=== PATIENT | male | born 1960 | race Caucasian/White ===

== ENCOUNTER 2020-04-06 11:52 | Inpatient (IN) | payer BC ==
[~2020-04-06] VITALS: Ht 170.2 cm; Wt 71.4 kg
[2020-04-06] MEDS ORDERED: HALOPERIDOL 5MG/ML VIAL (J1630 PER 1) IM ONE (12:15)
[2020-04-06] MEDS ORDERED: LORazepam 2 MG/ML VIAL IM ONE (12:15)
[2020-04-06] MEDS ORDERED: diphenhydrAMINE 50MG/ML VIAL (J1200) IM ONE (12:15)
[2020-04-06 12:26] LABS: HEMATOCRIT 38.7 % (42.0-52.0); HEMOGLOBIN 13.3 g/dl (13.5-17.5); MEAN CORPUSCULAR HEMOGLOBIN 32.4 pg (27.0-33.0); MEAN CORPUSCULAR HGB CONC 34.4 g/dl (32.0-36.5); MEAN CORPUSCULAR VOLUME 94.2 fl (80.0-96.0); PLATELET COUNT, AUTOMATED 182 10^3/uL (150-450); RED BLOOD COUNT 4.11 10^6/uL (4.30-6.10); WHITE BLOOD COUNT 7.5 10^3/uL (4.0-10.0)
[2020-04-06 13:02] LABS: ACETAMINOPHEN LEVEL < 2.0 UG/ML (10.0-30.0); ALBUMIN 3.7 GM/DL (3.2-5.2); ALT/SGPT 35 U/L (12-78); BILIRUBIN,DIRECT 0.2 MG/DL (0.0-0.2); BILIRUBIN,TOTAL 0.8 MG/DL (0.2-1.0); BLOOD UREA NITROGEN 17 MG/DL (7-18); CALCIUM LEVEL 8.5 MG/DL (8.8-10.2); CARBON DIOXIDE LEVEL 26 MEQ/L (21-32); CHLORIDE LEVEL 101 MEQ/L (98-107); CPK CREATINE PHOSPHOKINASE 419 U/L (39-308); CREATININE FOR GFR 1.04 MG/DL (0.70-1.30); ETHYL ALCOHOL (ETHANOL) < 0.003 % (0.000-0.010); GLOMERULAR FILTRATION RATE > 60.0 (>49); GLUCOSE, FASTING 94 MG/DL (70-100); POTASSIUM SERUM 3.8 MEQ/L (3.5-5.1); SALICYLATE LEVEL 2.4 MG/DL (5.0-30.0); SODIUM LEVEL 135 MEQ/L (136-145); TOTAL PROTEIN 6.7 GM/DL (6.4-8.2)
[2020-04-06 14:15] LABS: AMPHETAMINES LEVEL URINE NEGATIVE (NEGATIVE); BARBITURATES URINE NEGATIVE (NEGATIVE); BENZODIAZEPINES URINE NEGATIVE (NEGATIVE); CANNABINOIDS URINE NEGATIVE (NEGATIVE); COCAINE METABOLITE URINE NEGATIVE (NEGATIVE); METHADONE URINE NEGATIVE (NEGATIVE); OPIATES URINE NEGATIVE (NEGATIVE); PHENCYCLIDINE URINE NEGATIVE (NEGATIVE)
[2020-04-06] MEDS ORDERED: MOM 30ML SUSPENSION UDC PO PRN (15:00)
[2020-04-06] MEDS ORDERED: RISP4TAB2 PO (15:15)
[2020-04-06] MEDS ORDERED: ASPI81TA26 PO (15:15)
[2020-04-06] MEDS ORDERED: AMLO10TA5 PO (15:15)
[2020-04-06] MEDS ORDERED: LOPE1CAP5 PO (15:15)
[2020-04-06] MEDS ORDERED: DIVA500T9 PO (15:15)
[2020-04-06] MEDS ORDERED: RISP2TAB3 PO (15:15)
[2020-04-06] MEDS ORDERED: DIVA250T7 PO (15:15)
[2020-04-06] MEDS ORDERED: ATOR1TAB21 PO (15:33)
[2020-04-06] MEDS ORDERED: TRAZ1TAB14 PO (15:33)
[2020-04-06] MEDS ORDERED: LISI-538 PO (15:33)
[2020-04-06 17:47] VITALS: BP 145/85
[2020-04-06] MEDS: IBUPROFEN 400 MG TAB PO PRN (19:41)
[2020-04-06] MEDS: ACETAMINOPHEN TAB 650MG DOSE (2X325MG) PO PRN (20:35)
[2020-04-06] MEDS: OLANZapine ORAL DISINTEGRATING TAB 5MG PO PRN (20:35)
[2020-04-07 07:13] VITALS: BP 121/66
[2020-04-07] MEDS: ACETAMINOPHEN TAB 650MG DOSE (2X325MG) PO PRN ×2 (10:03→15:30)
[2020-04-07] MEDS: amLODIPine 10 MG TAB PO SCH (11:19)
[2020-04-07] MEDS: lisinopriL 20 MG TAB PO SCH (11:19)
[2020-04-07] MEDS: ATORVASTATIN 20 MG TAB PO SCH (11:19)
[2020-04-07] MEDS: ASPIRIN 81 MG ENTERIC TAB PO SCH (11:20)
[2020-04-07] MEDS: DIVALPROEX 250MG *ER* TAB PO SCH (12:43)
--- NOTE | 2020-04-07 14:00 | HPEPDOC ---
[facility] Medical History & Physical Date of Admission Apr 06, 2020 Date of Service: Apr 07, 2020 History and Physical CHIEF COMPLAINT: Admitted to [facility] HISTORY OF PRESENT ILLNESS: 59 yo male brought to hospital by police for manic behavior. Patient voices no medical complaints at this time. Denies chest pain, shortness of breath, headaches, changes in vision, abdominal pain, N/V/D. PAST MEDICAL HISTORY: HTN DLP ALLERGIES: Please see below. REVIEW OF SYSTEMS: Negative except as per HPI HOME MEDICATIONS: Please see below. PHYSICAL EXAMINATION: VITAL SIGNS: See below General: NAD, sitting comfortably in chair HEENT: NC/AT, EOMI, PERRL Lungs: CTA B/L Heart: +S1S2, RRR Abd: soft, NT, +BS Ext: no edema LABORATORY DATA: See below. MICROBIOLOGY: Please see below. ASSESSMENT: 59 yo male admitted to [facility] for manic episode #psych - as per primary team #HTN - continue home meds - norvasc, lisinopril #DLP - continue home meds - statin therapy Dispo: Thank you for this consult. Please re-consult as needed. Vital Signs Vital Signs Date Time Temp Pulse Resp B/P (MAP) Pulse Ox O2 Delivery O2 Flow Rate FiO2 04/07/20 11:19 86 128/79 04/07/20 10:41 Room Air 04/07/20 07:13 98.0 16 96 Home Medications Scheduled Amlodipine Besylate (Amlodipine Besylate) 10 Mg Tablet, 10 MG PO DAILY Aspirin (Aspirin EC) 81 Mg Tablet.dr, 81 MG PO DAILY Atorvastatin Calcium (Atorvastatin Calcium) 20 Mg Tablet, 20 MG PO DAILY Divalproex Sodium (Divalproex Sodium ER) 500 Mg Tab.er.24h, 1,500 MG PO BID Divalproex Sodium (Divalproex Sodium ER) 250 Mg Tab.er.24h, 250 MG PO DAILY Lisinopril (Lisinopril) 20 Mg Tablet, 20 MG PO DAILY Loperamide HCl (Loperamide) 2 Mg Capsule, 2 MG PO DAILY Risperidone (Risperidone) 2 Mg Tablet, 2 MG PO DAILY Risperidone (Risperidone) 4 Mg Tablet, 4 MG PO DAILY Trazodone HCl (Trazodone HCl) 150 Mg Tablet, 300 MG PO QHS Allergies Coded Allergies: Penicillins (Verified Allergy, Unknown, 7/9/20) A-FIB/CHADSVASC A-FIB History Current/History of A-Fib/PAF?: No JOSE GUO MD Apr 07, 2020 13:59
[2020-04-07] MEDS: OLANZapine ORAL DISINTEGRATING TAB 5MG PO PRN (15:31)
[2020-04-07 16:35] VITALS: BP 119/68
[2020-04-07] MEDS ORDERED: DIVALPROEX 500MG *ER* TAB PO SCH (21:00)
[2020-04-07] MEDS ORDERED: DIVALPROEX 250 MG TAB PO SCH (21:00)
[2020-04-07] MEDS: DIVALPROEX 500 MG TAB PO SCH (21:42)
[2020-04-07] MEDS: traZODone 50 MG TAB PO PRN (21:42)
[2020-04-08 06:09] VITALS: BP 121/70
[2020-04-08] MEDS: amLODIPine 10 MG TAB PO SCH (08:59)
[2020-04-08] MEDS: lisinopriL 20 MG TAB PO SCH (08:59)
[2020-04-08] MEDS: ATORVASTATIN 20 MG TAB PO SCH (08:59)
[2020-04-08] MEDS: ASPIRIN 81 MG ENTERIC TAB PO SCH (08:59)
[2020-04-08] MEDS: DIVALPROEX 250MG *ER* TAB PO SCH (08:59)
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
[2020-04-08] MEDS: ACETAMINOPHEN TAB 650MG DOSE (2X325MG) PO PRN ×2 (12:10→18:55)
[2020-04-08] MEDS: OLANZapine ORAL DISINTEGRATING TAB 5MG PO PRN (16:14)
[2020-04-08 16:24] VITALS: BP 127/69
[2020-04-08] MEDS: IBUPROFEN 400 MG TAB PO PRN (19:49)
[2020-04-08] MEDS: OLANZapine 5 MG TAB PO SCH (23:15)
[2020-04-08] MEDS: DIVALPROEX 500 MG TAB PO SCH (23:15)
[2020-04-08] MEDS: traZODone 50 MG TAB PO PRN (23:15)
[2020-04-09] MEDS: OLANZapine ORAL DISINTEGRATING TAB 5MG PO PRN (01:54)
[2020-04-09] MEDS ORDERED: DIVALPROEX 500MG *ER* TAB PO SCH ×2 (09:00→21:00)
[2020-04-09] MEDS ORDERED: DIVALPROEX 250MG *ER* TAB PO SCH (09:00)
[2020-04-09] MEDS: ATORVASTATIN 20 MG TAB PO SCH (09:35)
[2020-04-09] MEDS: amLODIPine 10 MG TAB PO SCH (09:35)
[2020-04-09] MEDS: lisinopriL 20 MG TAB PO SCH (09:35)
[2020-04-09] MEDS: ASPIRIN 81 MG ENTERIC TAB PO SCH (09:35)
--- NOTE | 2020-04-09 12:40 | MHIPNPDOC ---
[facility] Progress Note Progress Note DATE OF SERVICE: 04/09/20 HPI: Abdias presents today for a follow up. He is doing well on Depakote, but notes GI upset. Objective Behavior: Engaged. Pleasant. Cooperative with good eye contact. Speech: Normal rate. Normal volume. Less pressured. Cognition: Alert, Attentive, and Oriented to person, place, time. Thought Form: Linear and goal directed. Judgement: intact as evidenced by decision making in the recent past. Insight: good insight into symptoms and treatment options. Assessment F31.2 Bipolar disorder, current episode manic severe with psychotic features Plan Move Depakote to nighttime at 1000 mg. Continue Zyprexa 5 mg at night and Protonix 20 mg daily for GI upset related to Depakote. Will continue to monitor and likely discharge later this week if condition is improving. Vital Signs Vital Signs Date Time Temp Pulse Resp B/P (MAP) Pulse Ox O2 Delivery O2 Flow Rate FiO2 04/09/20 09:35 122/64 04/09/20 09:35 90 04/08/20 16:24 98.2 20 04/07/20 10:41 Room Air 04/07/20 07:13 96 Current Medications Current Medications Medications (Trade) Dose Ordered Sig/Suha Route PRN Reason Start Time Stop Time Status Last Admin Dose Admin Acetaminophen (Tylenol Tab) 650 mg Q6HP PRN PO HEADACHE or DISCOMFORT 04/06/20 15:00 04/08/20 18:55 Amlodipine Besylate (Norvasc) 10 mg DAILY PO 04/07/20 09:00 04/09/20 09:35 Aspirin (Ecotrin) 81 mg DAILY PO 04/07/20 09:00 04/09/20 09:35 Atorvastatin Calcium (Lipitor) 20 mg DAILY PO 04/07/20 09:00 04/09/20 09:35 Divalproex Sodium (Depakote Er) 250 mg DAILY PO 04/07/20 09:00 04/08/20 11:57 DC 04/08/20 08:59 Divalproex Sodium (Depakote Er) 500 mg DAILY PO 04/09/20 09:00 04/08/20 11:59 DC Divalproex Sodium (Depakote Er) 500 mg DAILY PO 04/09/20 09:00 04/09/20 09:35 Divalproex Sodium (Depakote Er) 1,500 mg BID PO 04/07/20 21:00 UNV Divalproex Sodium (Depakote) 500 mg QHS PO 04/07/20 21:00 04/08/20 23:15 Divalproex Sodium (Depakote) 750 mg QHS PO 04/07/20 21:00 UNV Home Med (Med Rec Complete!) ASDIRECTED XX 04/06/20 16:45 04/06/20 16:32 DC Ibuprofen (Advil) 400 mg Q6HP PRN PO PAIN 04/06/20 15:00 04/08/20 19:49 Lisinopril (Prinivil) 20 mg DAILY PO 04/07/20 09:00 04/09/20 09:35 Magnesium Hydroxide (Milk Of Magnesia) 30 ml DAILYPRN PRN PO CONSTIPATION 04/06/20 15:00 Olanzapine (ZyPREXA ZYDIS) 5 mg Q4HP PRN PO AGITATION 04/06/20 15:00 04/09/20 01:54 Olanzapine (ZyPREXA) 5 mg QHS PO 04/08/20 21:00 04/08/20 23:15 Trazodone HCl (Desyrel) 50 mg QHSP PRN PO INSOMNIA 04/06/20 20:45 04/08/20 23:15 Allergies Coded Allergies: Penicillins (Verified Allergy, Unknown, 04/06/20) MILEY WILSON DO Apr 09, 2020 12:40
[2020-04-09] MEDS: ACETAMINOPHEN TAB 650MG DOSE (2X325MG) PO PRN (14:09)
[2020-04-09] MEDS ORDERED: PANTOPRAZOLE 20 MG TAB PO ONE (16:00)
[2020-04-09 16:29] VITALS: BP 123/77
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
[2020-04-09] MEDS: OLANZapine 5 MG TAB PO SCH (21:35)
[2020-04-09] MEDS: traZODone 50 MG TAB PO PRN (21:35)
[2020-04-09] MEDS: DIVALPROEX 500MG *ER* TAB PO SCH (21:55)
[2020-04-09] MEDS: traZODone 100 MG TAB PO SCH (21:55)
[2020-04-10 06:38] VITALS: BP 140/79
[2020-04-10] MEDS ORDERED: DIVALPROEX 500MG *ER* TAB PO SCH (09:00)
--- NOTE | 2020-04-10 09:12 | MHIPNPDOC ---
[facility] Progress Note Progress Note DATE OF SERVICE: 04/10/20 HPI: Abdias presents today for concerns regarding his follow up. He has attempted to be met with today, but he is distorted and aggressive to be met with effectively. He had been arguing with a safety staff about a mask and that covid-19 was not real and that he has been unusual throughout the day. Abdias was met with briefly but was too agitated to form any coherent sentences. Objective Behavior: Aggressive, irritable, anxious. Thought Form: Though process abound and hyper-verbal. Judgement: Poor. Insight: Poor. Assessment F31.13 Bipolar disorder, current episode manic without psychotic features, severe Plan Continue Depakote 1000 mg nightly, Trazadone 300 mg nightly, and Protonix. Patient has been instructed to stay in his room if he will not wear a mask, and hopefully his resolution will be more smooth. Vital Signs Vital Signs Date Time Temp Pulse Resp B/P (MAP) Pulse Ox O2 Delivery O2 Flow Rate FiO2 04/10/20 06:38 98.3 89 14 140/79 (99) Room Air 04/07/20 07:13 96 Current Medications Current Medications Medications (Trade) Dose Ordered Sig/Suha Route PRN Reason Start Time Stop Time Status Last Admin Dose Admin Acetaminophen (Tylenol Tab) 650 mg Q6HP PRN PO HEADACHE or DISCOMFORT 04/06/20 15:00 04/09/20 14:09 Amlodipine Besylate (Norvasc) 10 mg DAILY PO 04/07/20 09:00 04/09/20 09:35 Aspirin (Ecotrin) 81 mg DAILY PO 04/07/20 09:00 04/09/20 09:35 Atorvastatin Calcium (Lipitor) 20 mg DAILY PO 04/07/20 09:00 04/09/20 09:35 Divalproex Sodium (Depakote Er) 250 mg DAILY PO 04/07/20 09:00 04/08/20 11:57 DC 04/08/20 08:59 Divalproex Sodium (Depakote Er) 500 mg DAILY PO 04/09/20 09:00 04/08/20 11:59 DC Divalproex Sodium (Depakote Er) 500 mg DAILY PO 04/09/20 09:00 04/09/20 15:06 DC 04/09/20 09:35 Divalproex Sodium (Depakote Er) 1,000 mg DAILY PO 04/10/20 09:00 04/09/20 21:40 DC Divalproex Sodium (Depakote Er) 1,000 mg QHS PO 04/09/20 21:00 04/09/20 22:02 DC Divalproex Sodium (Depakote Er) 1,000 mg QHS PO 04/09/20 21:00 04/09/20 21:55 Divalproex Sodium (Depakote Er) 1,500 mg BID PO 04/07/20 21:00 UNV Divalproex Sodium (Depakote) 500 mg QHS PO 04/07/20 21:00 04/09/20 15:06 DC 04/08/20 23:15 Divalproex Sodium (Depakote) 750 mg QHS PO 04/07/20 21:00 UNV Home Med (Med Rec Complete!) ASDIRECTED XX 04/06/20 16:45 04/06/20 16:32 DC Ibuprofen (Advil) 400 mg Q6HP PRN PO PAIN 04/06/20 15:00 04/08/20 19:49 Lisinopril (Prinivil) 20 mg DAILY PO 04/07/20 09:00 04/09/20 09:35 Magnesium Hydroxide (Milk Of Magnesia) 30 ml DAILYPRN PRN PO CONSTIPATION 04/06/20 15:00 Olanzapine (ZyPREXA ZYDIS) 5 mg Q4HP PRN PO AGITATION 04/06/20 15:00 04/09/20 01:54 Olanzapine (ZyPREXA) 5 mg QHS PO 04/08/20 21:00 04/09/20 21:35 Pantoprazole Sodium (Protonix) 20 mg DAILY PO 04/10/20 09:00 Trazodone HCl (Desyrel) 50 mg QHSP PRN PO INSOMNIA 04/06/20 20:45 04/09/20 21:40 DC 04/08/20 23:15 Trazodone HCl (Desyrel) 300 mg QHS PO 04/09/20 21:00 04/09/20 21:55 Allergies Coded Allergies: Penicillins (Verified Allergy, Unknown, 04/06/20) MILEY WILSON DO Apr 10, 2020 09:12
[2020-04-10] MEDS: ASPIRIN 81 MG ENTERIC TAB PO SCH (09:31)
[2020-04-10] MEDS: lisinopriL 20 MG TAB PO SCH (09:31)
[2020-04-10] MEDS: ATORVASTATIN 20 MG TAB PO SCH (09:32)
[2020-04-10] MEDS: amLODIPine 10 MG TAB PO SCH (09:32)
[2020-04-10] MEDS: PANTOPRAZOLE 20 MG TAB PO SCH (09:32)
[2020-04-10 15:54] VITALS: BP 125/74
[2020-04-10] MEDS: OLANZapine 5 MG TAB PO SCH (22:45)
[2020-04-10] MEDS: DIVALPROEX 500MG *ER* TAB PO SCH (22:46)
[2020-04-10] MEDS: OLANZapine ORAL DISINTEGRATING TAB 5MG PO PRN (22:46)
[2020-04-10] MEDS: traZODone 100 MG TAB PO SCH (22:46)
[2020-04-11 06:01] VITALS: BP 106/66
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
[2020-04-11] MEDS: ATORVASTATIN 20 MG TAB PO SCH (09:04)
[2020-04-11] MEDS: PANTOPRAZOLE 20 MG TAB PO SCH (09:04)
[2020-04-11] MEDS: ASPIRIN 81 MG ENTERIC TAB PO SCH (09:05)
[2020-04-11] MEDS: amLODIPine 10 MG TAB PO SCH (09:05)
[2020-04-11] MEDS: lisinopriL 20 MG TAB PO SCH (09:05)
[2020-04-11 17:14] VITALS: BP 123/72
[2020-04-11] MEDS: OLANZapine 5 MG TAB PO SCH (21:00)
[2020-04-11] MEDS: DIVALPROEX 500MG *ER* TAB PO SCH (22:47)
[2020-04-11] MEDS: traZODone 100 MG TAB PO SCH (22:48)
[2020-04-12 05:57] VITALS: BP 120/59
[2020-04-12] MEDS: PANTOPRAZOLE 20 MG TAB PO SCH (09:59)
[2020-04-12] MEDS: amLODIPine 10 MG TAB PO SCH (09:59)
[2020-04-12] MEDS: lisinopriL 20 MG TAB PO SCH (09:59)
[2020-04-12] MEDS: ASPIRIN 81 MG ENTERIC TAB PO SCH (09:59)
[2020-04-12] MEDS: ATORVASTATIN 20 MG TAB PO SCH (09:59)
[2020-04-12] MEDS: OLANZapine ORAL DISINTEGRATING TAB 5MG PO PRN (16:16)
[2020-04-12 17:08] VITALS: BP 142/83
[2020-04-12] MEDS: DIVALPROEX 500MG *ER* TAB PO SCH (20:05)
[2020-04-12] MEDS: OLANZapine 5 MG TAB PO SCH (20:05)
[2020-04-12] MEDS: traZODone 100 MG TAB PO SCH (20:05)
[2020-04-13] MEDS: OLANZapine ORAL DISINTEGRATING TAB 5MG PO PRN ×2 (08:39→18:19)
[2020-04-13] MEDS: lisinopriL 20 MG TAB PO SCH (08:39)
[2020-04-13] MEDS: ASPIRIN 81 MG ENTERIC TAB PO SCH (08:39)
[2020-04-13] MEDS: PANTOPRAZOLE 20 MG TAB PO SCH (08:39)
[2020-04-13] MEDS: ATORVASTATIN 20 MG TAB PO SCH (08:39)
[2020-04-13] MEDS: amLODIPine 10 MG TAB PO SCH (08:40)
[2020-04-13 18:25] VITALS: BP 123/78
[2020-04-13] MEDS: DIVALPROEX 500MG *ER* TAB PO SCH (21:17)
[2020-04-13] MEDS: OLANZapine 5 MG TAB PO SCH (21:17)
[2020-04-13] MEDS: traZODone 100 MG TAB PO SCH (21:17)
[2020-04-14 06:19] VITALS: BP 124/63
--- NOTE | 2020-04-14 07:41 | MHIPNPDOC ---
[facility] Progress Note Progress Note DATE OF SERVICE: 04/14/20 HPI: Adbias presents today for a follow up. He recently had problems with complaints about being fascist and speaking of a superior race. He reports that he was simply joking around. Objective Behavior: Unable to be redirected. Speech: Hyper-verbal. Tangential. Thought Content: Various fascist ideas. Feeling that he is trying to create a superior race. Insight: Poor. Assessment F31.2 Bipolar disorder, current episode manic severe with psychotic features Plan Increase Zyprexa to 5 mg during the day and 10 mg at nightly. Continue Depakote at this time. Convert to 2PC legal status. Vital Signs Vital Signs Date Time Temp Pulse Resp B/P (MAP) Pulse Ox O2 Delivery O2 Flow Rate FiO2 04/14/20 06:19 97.8 83 14 124/63 (83) Room Air 04/12/20 05:57 98 Current Medications Current Medications Medications (Trade) Dose Ordered Sig/Suha Route PRN Reason Start Time Stop Time Status Last Admin Dose Admin Acetaminophen (Tylenol Tab) 650 mg Q6HP PRN PO HEADACHE or DISCOMFORT 04/06/20 15:00 04/09/20 14:09 Amlodipine Besylate (Norvasc) 10 mg DAILY PO 04/07/20 09:00 04/13/20 08:40 Aspirin (Ecotrin) 81 mg DAILY PO 04/07/20 09:00 04/13/20 08:39 Atorvastatin Calcium (Lipitor) 20 mg DAILY PO 04/07/20 09:00 04/13/20 08:39 Divalproex Sodium (Depakote Er) 250 mg DAILY PO 04/07/20 09:00 04/08/20 11:57 DC 04/08/20 08:59 Divalproex Sodium (Depakote Er) 500 mg DAILY PO 04/09/20 09:00 04/08/20 11:59 DC Divalproex Sodium (Depakote Er) 500 mg DAILY PO 04/09/20 09:00 04/09/20 15:06 DC 04/09/20 09:35 Divalproex Sodium (Depakote Er) 1,000 mg DAILY PO 04/10/20 09:00 04/09/20 21:40 DC Divalproex Sodium (Depakote Er) 1,000 mg QHS PO 04/09/20 21:00 04/09/20 22:02 DC Divalproex Sodium (Depakote Er) 1,000 mg QHS PO 04/09/20 21:00 04/13/20 21:17 Divalproex Sodium (Depakote Er) 1,500 mg BID PO 04/07/20 21:00 UNV Divalproex Sodium (Depakote) 500 mg QHS PO 04/07/20 21:00 04/09/20 15:06 DC 04/08/20 23:15 Divalproex Sodium (Depakote) 750 mg QHS PO 04/07/20 21:00 UNV Home Med (Med Rec Complete!) ASDIRECTED XX 04/06/20 16:45 04/06/20 16:32 DC Ibuprofen (Advil) 400 mg Q6HP PRN PO PAIN 04/06/20 15:00 04/08/20 19:49 Lisinopril (Prinivil) 20 mg DAILY PO 04/07/20 09:00 04/13/20 08:39 Magnesium Hydroxide (Milk Of Magnesia) 30 ml DAILYPRN PRN PO CONSTIPATION 04/06/20 15:00 Olanzapine (ZyPREXA ZYDIS) 5 mg Q4HP PRN PO AGITATION 04/06/20 15:00 04/13/20 18:19 Olanzapine (ZyPREXA) 5 mg QHS PO 04/08/20 21:00 04/11/20 09:43 DC 04/10/20 22:45 Olanzapine (ZyPREXA) 10 mg QHS PO 04/11/20 21:00 04/13/20 21:17 Pantoprazole Sodium (Protonix) 20 mg DAILY PO 04/10/20 09:00 04/13/20 08:39 Trazodone HCl (Desyrel) 50 mg QHSP PRN PO INSOMNIA 04/06/20 20:45 04/09/20 21:40 DC 04/08/20 23:15 Trazodone HCl (Desyrel) 300 mg QHS PO 04/09/20 21:00 04/13/20 21:17 Allergies Coded Allergies: Penicillins (Verified Allergy, Unknown, 04/06/20) MILEY WILSON DO Apr 14, 2020 07:41
[2020-04-14] MEDS: PANTOPRAZOLE 20 MG TAB PO SCH (08:32)
[2020-04-14] MEDS: lisinopriL 20 MG TAB PO SCH (08:32)
[2020-04-14] MEDS: ATORVASTATIN 20 MG TAB PO SCH (08:32)
[2020-04-14] MEDS: ASPIRIN 81 MG ENTERIC TAB PO SCH (08:32)
[2020-04-14] MEDS: amLODIPine 10 MG TAB PO SCH (08:32)
[2020-04-14] MEDS: OLANZapine ORAL DISINTEGRATING TAB 5MG PO PRN (08:33)
[2020-04-14 18:05] VITALS: BP 120/56
[2020-04-14] MEDS: OLANZapine 5 MG TAB PO SCH (21:00)
[2020-04-14] MEDS: traZODone 100 MG TAB PO SCH (21:00)
[2020-04-14] MEDS: DIVALPROEX 500MG *ER* TAB PO SCH (21:00)
[2020-04-15 06:01] VITALS: BP 137/73
[2020-04-15] MEDS: ASPIRIN 81 MG ENTERIC TAB PO SCH (09:45)
[2020-04-15] MEDS: ATORVASTATIN 20 MG TAB PO SCH (09:45)
[2020-04-15] MEDS: amLODIPine 10 MG TAB PO SCH (09:45)
[2020-04-15] MEDS: OLANZapine ORAL DISINTEGRATING TAB 5MG PO SCH (09:45)
[2020-04-15] MEDS: PANTOPRAZOLE 20 MG TAB PO SCH (09:45)
[2020-04-15] MEDS: lisinopriL 20 MG TAB PO SCH (09:45)
[2020-04-15] MEDS: OLANZapine ORAL DISINTEGRATING TAB 5MG PO PRN (10:21)
[2020-04-15 15:38] VITALS: BP 145/80
[2020-04-15] MEDS: traZODone 100 MG TAB PO SCH (21:41)
[2020-04-15] MEDS: DIVALPROEX 500MG *ER* TAB PO SCH (21:41)
[2020-04-15] MEDS: OLANZapine 5 MG TAB PO SCH (21:42)
[2020-04-16 06:22] VITALS: BP 108/66
[2020-04-16] MEDS: lisinopriL 20 MG TAB PO SCH (09:02)
[2020-04-16] MEDS: PANTOPRAZOLE 20 MG TAB PO SCH (09:02)
[2020-04-16] MEDS: amLODIPine 10 MG TAB PO SCH (09:02)
[2020-04-16] MEDS: ATORVASTATIN 20 MG TAB PO SCH (09:03)
[2020-04-16] MEDS: ASPIRIN 81 MG ENTERIC TAB PO SCH (09:03)
[2020-04-16] MEDS: OLANZapine ORAL DISINTEGRATING TAB 5MG PO SCH (09:03)
[2020-04-16 16:19] VITALS: BP 123/70
[2020-04-16] MEDS: OLANZapine 5 MG TAB PO SCH (22:35)
[2020-04-16] MEDS: traZODone 100 MG TAB PO SCH (22:35)
[2020-04-16] MEDS: DIVALPROEX 500MG *ER* TAB PO SCH (22:36)
[2020-04-17 05:57] VITALS: BP 131/76
--- NOTE | 2020-04-17 07:50 | MHIPNPDOC ---
[facility] Progress Note Progress Note DATE OF SERVICE: 04/17/20 HPI: Abdias presents today for a follow-up visit. He reports he had a good weekend and states he feels better after taking his medication. Abdias reports it's his birthday tomorrow and doesnt want to be in the hospital. He states he was joking on Friday and if the provider doesnt understand that, he needs to leave the room. Objective Appearance: Fair hygiene. Behavior: Hostile. Angry. Psychotic. Tangential. Highly labile with angry thoughts towards this provider. Assessment F31.2 Bipolar disorder, current episode manic severe with psychotic features Plan Increase Zyprexa 250 mg nightly. Continue Depakote; has a history of cheeking medications, thus will order Depa kote level to ensure that he has been taking his medications. The Zyprexa Zydis is designed to avoid individuals cheeking their medications less which will help us determine if he is improving. His improvement does appear to produce less hypersexuality, and he is more redirect although he has become demonstrably more threatening to this provider after he was told he wasnt going home today. Vital Signs Vital Signs Date Time Temp Pulse Resp B/P (MAP) Pulse Ox O2 Delivery O2 Flow Rate FiO2 04/17/20 05:57 97.9 63 16 131/76 (94) 97 Room Air Current Medications Current Medications Medications (Trade) Dose Ordered Sig/Suha Route PRN Reason Start Time Stop Time Status Last Admin Dose Admin Acetaminophen (Tylenol Tab) 650 mg Q6HP PRN PO HEADACHE or DISCOMFORT 04/06/20 15:00 04/09/20 14:09 Amlodipine Besylate (Norvasc) 10 mg DAILY PO 04/07/20 09:00 04/16/20 09:02 Aspirin (Ecotrin) 81 mg DAILY PO 04/07/20 09:00 04/16/20 09:03 Atorvastatin Calcium (Lipitor) 20 mg DAILY PO 04/07/20 09:00 04/16/20 09:03 Divalproex Sodium (Depakote Er) 250 mg DAILY PO 04/07/20 09:00 04/08/20 11:57 DC 04/08/20 08:59 Divalproex Sodium (Depakote Er) 500 mg DAILY PO 04/09/20 09:00 04/08/20 11:59 DC Divalproex Sodium (Depakote Er) 500 mg DAILY PO 04/09/20 09:00 04/09/20 15:06 DC 04/09/20 09:35 Divalproex Sodium (Depakote Er) 1,000 mg DAILY PO 04/10/20 09:00 04/09/20 21:40 DC Divalproex Sodium (Depakote Er) 1,000 mg QHS PO 04/09/20 21:00 04/09/20 22:02 DC Divalproex Sodium (Depakote Er) 1,000 mg QHS PO 04/09/20 21:00 04/16/20 22:36 Divalproex Sodium (Depakote Er) 1,500 mg BID PO 04/07/20 21:00 UNV Divalproex Sodium (Depakote) 500 mg QHS PO 04/07/20 21:00 04/09/20 15:06 DC 04/08/20 23:15 Divalproex Sodium (Depakote) 750 mg QHS PO 04/07/20 21:00 UNV Home Med (Med Rec Complete!) ASDIRECTED XX 04/06/20 16:45 04/06/20 16:32 DC Ibuprofen (Advil) 400 mg Q6HP PRN PO PAIN 04/06/20 15:00 04/08/20 19:49 Lisinopril (Prinivil) 20 mg DAILY PO 04/07/20 09:00 04/16/20 09:02 Magnesium Hydroxide (Milk Of Magnesia) 30 ml DAILYPRN PRN PO CONSTIPATION 04/06/20 15:00 Olanzapine (ZyPREXA ZYDIS) 5 mg Q4HP PRN PO AGITATION 04/06/20 15:00 04/15/20 10:21 Olanzapine (ZyPREXA ZYDIS) 5 mg QAM PO 04/15/20 09:00 04/16/20 09:03 Olanzapine (ZyPREXA) 5 mg QHS PO 04/08/20 21:00 04/11/20 09:43 DC 04/10/20 22:45 Olanzapine (ZyPREXA) 10 mg QHS PO 04/11/20 21:00 04/16/20 22:35 Pantoprazole Sodium (Protonix) 20 mg DAILY PO 04/10/20 09:00 04/16/20 09:02 Trazodone HCl (Desyrel) 50 mg QHSP PRN PO INSOMNIA 04/06/20 20:45 04/09/20 21:40 DC 04/08/20 23:15 Trazodone HCl (Desyrel) 300 mg QHS PO 04/09/20 21:00 04/16/20 22:35 Allergies Coded Allergies: Penicillins (Verified Allergy, Unknown, 04/06/20) MILEY WILSON DO Apr 17, 2020 07:50
[2020-04-17] MEDS: OLANZapine ORAL DISINTEGRATING TAB 5MG PO SCH (09:44)
[2020-04-17] MEDS: ASPIRIN 81 MG ENTERIC TAB PO SCH (09:44)
[2020-04-17] MEDS: PANTOPRAZOLE 20 MG TAB PO SCH (09:44)
[2020-04-17] MEDS: ATORVASTATIN 20 MG TAB PO SCH (09:44)
[2020-04-17] MEDS: lisinopriL 20 MG TAB PO SCH (09:45)
[2020-04-17] MEDS: amLODIPine 10 MG TAB PO SCH (09:46)
[2020-04-17 16:09] VITALS: BP 121/63
[2020-04-17] MEDS: OLANZapine 5 MG TAB PO SCH (22:38)
[2020-04-17] MEDS: traZODone 100 MG TAB PO SCH (22:38)
[2020-04-17] MEDS: DIVALPROEX 500MG *ER* TAB PO SCH (22:38)
[2020-04-18 06:24] VITALS: BP 130/72
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
[2020-04-18] MEDS: PANTOPRAZOLE 20 MG TAB PO SCH (08:33)
[2020-04-18] MEDS: ATORVASTATIN 20 MG TAB PO SCH (08:34)
[2020-04-18] MEDS: OLANZapine ORAL DISINTEGRATING TAB 5MG PO SCH (08:34)
[2020-04-18] MEDS: amLODIPine 10 MG TAB PO SCH (08:34)
[2020-04-18] MEDS: lisinopriL 20 MG TAB PO SCH (08:34)
[2020-04-18] MEDS: ASPIRIN 81 MG ENTERIC TAB PO SCH (08:34)
[2020-04-18 16:09] VITALS: BP 128/58
[2020-04-18] MEDS: traZODone 100 MG TAB PO SCH (21:54)
[2020-04-18] MEDS: DIVALPROEX 500MG *ER* TAB PO SCH (21:54)
[2020-04-18] MEDS: OLANZapine 5 MG TAB PO SCH (21:54)
[2020-04-19 06:23] VITALS: BP 119/68
[2020-04-19] MEDS: amLODIPine 10 MG TAB PO SCH (09:00)
[2020-04-19] MEDS: lisinopriL 20 MG TAB PO SCH (09:00)
--- NOTE | 2020-04-19 09:11 | MHIPNPDOC ---
[facility] Progress Note Progress Note DATE OF SERVICE: 04/19/20 Abdias presents today for concerns regarding his bipolar disorder. Patient might have the possibility to be discharged to the care of his brother. He has been l ess intrusive and much less aggressive since medicine change, with no major issues overnight. Objective Behavior: Engaged. Pleasant. Cooperative with good eye contact. Mildly hyper- verbal. Speech: Less tangential. Less pressure. Whole focused. Thought Content: No evidence of delusions. No evidence of suicidal ideation. No thoughts of self harm. No evidence of aggressive or homicidal ideation. Judgement: Intact as evidenced by decision making in the recent past. Insight: Good insight into symptoms and treatment options. Assessment F31.2 Bipolar disorder, current episode manic severe with psychotic features Plan Patient will continue with current medication. Patient might have the possibility to be discharged to the care of his brother as he will likely need assistance in whichever form he seeks to return. If patient is not released to his brother, he would likely not take his med ication or become manic again on his way home, which puts at great risk for doing harm to others. Vital Signs Vital Signs Date Time Temp Pulse Resp B/P (MAP) Pulse Ox O2 Delivery O2 Flow Rate FiO2 04/19/20 08:38 Room Air 04/19/20 06:23 98.3 67 12 119/68 (85) 04/17/20 05:57 97 Current Medications Current Medications Medications (Trade) Dose Ordered Sig/Suha Route PRN Reason Start Time Stop Time Status Last Admin Dose Admin Acetaminophen (Tylenol Tab) 650 mg Q6HP PRN PO HEADACHE or DISCOMFORT 04/06/20 15:00 04/09/20 14:09 Amlodipine Besylate (Norvasc) 10 mg DAILY PO 04/07/20 09:00 04/18/20 08:34 Aspirin (Ecotrin) 81 mg DAILY PO 04/07/20 09:00 04/18/20 08:34 Atorvastatin Calcium (Lipitor) 20 mg DAILY PO 04/07/20 09:00 04/18/20 08:34 Divalproex Sodium (Depakote Er) 250 mg DAILY PO 04/07/20 09:00 04/08/20 11:57 DC 04/08/20 08:59 Divalproex Sodium (Depakote Er) 500 mg DAILY PO 04/09/20 09:00 04/08/20 11:59 DC Divalproex Sodium (Depakote Er) 500 mg DAILY PO 04/09/20 09:00 04/09/20 15:06 DC 04/09/20 09:35 Divalproex Sodium (Depakote Er) 1,000 mg DAILY PO 04/10/20 09:00 04/09/20 21:40 DC Divalproex Sodium (Depakote Er) 1,000 mg QHS PO 04/09/20 21:00 04/09/20 22:02 DC Divalproex Sodium (Depakote Er) 1,000 mg QHS PO 04/09/20 21:00 04/18/20 09:34 DC 04/17/20 22:38 Divalproex Sodium (Depakote Er) 1,500 mg BID PO 04/07/20 21:00 UNV Divalproex Sodium (Depakote Er) 1,500 mg QHS PO 04/18/20 21:00 04/18/20 21:54 Divalproex Sodium (Depakote) 500 mg QHS PO 04/07/20 21:00 04/09/20 15:06 DC 04/08/20 23:15 Divalproex Sodium (Depakote) 750 mg QHS PO 04/07/20 21:00 UNV Home Med (Med Rec Complete!) ASDIRECTED XX 04/06/20 16:45 04/06/20 16:32 DC Ibuprofen (Advil) 400 mg Q6HP PRN PO PAIN 04/06/20 15:00 04/08/20 19:49 Lisinopril (Prinivil) 20 mg DAILY PO 04/07/20 09:00 04/18/20 08:34 Magnesium Hydroxide (Milk Of Magnesia) 30 ml DAILYPRN PRN PO CONSTIPATION 04/06/20 15:00 Olanzapine (ZyPREXA ZYDIS) 5 mg Q4HP PRN PO AGITATION 04/06/20 15:00 04/15/20 10:21 Olanzapine (ZyPREXA ZYDIS) 5 mg QAM PO 04/15/20 09:00 04/18/20 09:34 DC 04/18/20 08:34 Olanzapine (ZyPREXA ZYDIS) 10 mg QAM PO 04/19/20 09:00 Olanzapine (ZyPREXA) 5 mg QHS PO 04/08/20 21:00 04/11/20 09:43 DC 04/10/20 22:45 Olanzapine (ZyPREXA) 10 mg QHS PO 04/11/20 21:00 04/17/20 09:31 DC 04/16/20 22:35 Olanzapine (ZyPREXA) 15 mg QHS PO 04/17/20 21:00 04/18/20 21:54 Pantoprazole Sodium (Protonix) 20 mg DAILY PO 04/10/20 09:00 04/18/20 08:33 Trazodone HCl (Desyrel) 50 mg QHSP PRN PO INSOMNIA 04/06/20 20:45 04/09/20 21:40 DC 04/08/20 23:15 Trazodone HCl (Desyrel) 300 mg QHS PO 04/09/20 21:00 04/18/20 21:54 Allergies Coded Allergies: Penicillins (Verified Allergy, Unknown, 04/06/20) MILEY WILSON DO Apr 19, 2020 09:11
[2020-04-19] MEDS: ATORVASTATIN 20 MG TAB PO SCH (09:23)
[2020-04-19] MEDS: OLANZapine ORAL DISINTEGRATING TAB 5MG PO SCH (09:23)
[2020-04-19] MEDS: ASPIRIN 81 MG ENTERIC TAB PO SCH (09:23)
[2020-04-19] MEDS: PANTOPRAZOLE 20 MG TAB PO SCH (09:23)
[2020-04-19 16:04] VITALS: BP 139/68
[2020-04-19] MEDS: OLANZapine 5 MG TAB PO SCH (22:40)
[2020-04-19] MEDS: traZODone 100 MG TAB PO SCH (22:40)
[2020-04-19] MEDS: DIVALPROEX 500MG *ER* TAB PO SCH (22:41)
[2020-04-19] MEDS ORDERED: MAALOX 30 ML SUSP *UDC PO PRN (22:45)
[2020-04-20 06:32] VITALS: BP 135/65
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
[2020-04-20 10:28] VITALS: BP 121/72
[2020-04-20] MEDS: lisinopriL 20 MG TAB PO SCH (10:28)
[2020-04-20] MEDS: ASPIRIN 81 MG ENTERIC TAB PO SCH (10:29)
[2020-04-20] MEDS: OLANZapine ORAL DISINTEGRATING TAB 5MG PO SCH (10:29)
[2020-04-20] MEDS: ATORVASTATIN 20 MG TAB PO SCH (10:29)
[2020-04-20] MEDS: PANTOPRAZOLE 20 MG TAB PO SCH (10:30)
[2020-04-20] MEDS: amLODIPine 10 MG TAB PO SCH (10:30)
[2020-04-20] MEDS ORDERED: DIVALPROEX 500MG *ER* TAB PO SCH (21:00)
[2020-04-21] MEDS ORDERED: OLANZapine ORAL DISINTEGRATING TAB 5MG PO SCH (09:00)
[2020-04-22] MEDS ORDERED: amLODIPine 10 MG TAB ONE (09:39)
[2020-04-22] MEDS ORDERED: PANTOPRAZOLE 20 MG TAB ONE ×2 (09:39→11:30)
[2020-04-22] MEDS ORDERED: ASPIRIN 81 MG ENTERIC TAB ONE (09:39)
[2020-04-22] MEDS ORDERED: ATORVASTATIN 20 MG TAB ONE (09:39)
[2020-04-22] MEDS ORDERED: OLANZapine ORAL DISINTEGRATING TAB 5MG ONE (09:39)
[2020-04-22] MEDS ORDERED: zolPIDEM TARTRATE 5 MG TAB ONE (10:29)
[2020-04-22] MEDS ORDERED: OLANZapine 5 MG TAB ONE (10:29)
[2020-04-22] MEDS ORDERED: DIVALPROEX 500 MG TAB ONE (10:29)
[2020-04-22] MEDS ORDERED: zolPIDEM TARTRATE 5 MG TAB As Ordered ONE (22:31)
[2020-04-23] MEDS ORDERED: PANTOPRAZOLE 20 MG TAB ONE (09:04)
[2020-04-23] MEDS ORDERED: ASPIRIN 81 MG ENTERIC TAB ONE (09:04)
[2020-04-23] MEDS ORDERED: ATORVASTATIN 20 MG TAB ONE (09:04)
[2020-04-23] MEDS ORDERED: DIVALPROEX 500MG *ER* TAB ONE (09:04)
[2020-04-23] MEDS ORDERED: OLANZapine ORAL DISINTEGRATING TAB 5MG ONE (09:04)
[2020-04-23] MEDS ORDERED: amLODIPine 10 MG TAB ONE (09:04)
[2020-04-23] MEDS ORDERED: OLANZapine 5 MG TAB ONE (10:09)
[2020-04-23] MEDS ORDERED: MAALOX 30 ML SUSP *UDC ONE (10:09)
[2020-04-23] MEDS ORDERED: zolPIDEM TARTRATE 5 MG TAB ONE (10:09)
[2020-04-23] MEDS ORDERED: QUEtiapine FUMARATE 200 MG TAB ONE (10:09)
[2020-04-23] MEDS ORDERED: zolPIDEM TARTRATE 5 MG TAB As Ordered ONE (22:09)
[2020-04-23] MEDS ORDERED: QUEtiapine FUMARATE 200 MG TAB As Ordered ONE (22:17)
[2020-04-24] MEDS ORDERED: PALIPERIDONE 6 MG ER TAB (INVEGA) ONE (10:27)
[2020-04-24] MEDS ORDERED: DIVALPROEX 500MG *ER* TAB ONE (10:27)
[2020-04-24] MEDS ORDERED: PANTOPRAZOLE 20 MG TAB ONE (10:27)
[2020-04-24] MEDS ORDERED: QUEtiapine FUMARATE 200 MG TAB ONE (10:27)
[2020-04-24] MEDS ORDERED: ATORVASTATIN 20 MG TAB ONE (10:27)
[2020-04-24] MEDS ORDERED: amLODIPine 10 MG TAB ONE (10:27)
[2020-04-24] MEDS ORDERED: ASPIRIN 81 MG ENTERIC TAB ONE (10:27)
[2020-04-24] MEDS ORDERED: MAALOX 30 ML SUSP *UDC ONE (10:27)
[2020-04-24] MEDS ORDERED: PALIPERIDONE 6 MG ER TAB (INVEGA) As Ordered ONE (21:53)
[2020-04-24] MEDS ORDERED: QUEtiapine FUMARATE 200 MG TAB As Ordered ONE (21:54)
[2020-04-25] MEDS ORDERED: DIVALPROEX 500MG *ER* TAB ONE (08:23)
[2020-04-25] MEDS ORDERED: ATORVASTATIN 20 MG TAB ONE (08:23)
[2020-04-25] MEDS ORDERED: OLANZapine ORAL DISINTEGRATING TAB 5MG ONE (08:23)
[2020-04-25] MEDS ORDERED: PALIPERIDONE 6 MG ER TAB (INVEGA) ONE (08:23)
[2020-04-25] MEDS ORDERED: BENZTROPINE 1 MG TAB ONE (08:23)
[2020-04-25] MEDS ORDERED: PANTOPRAZOLE 20 MG TAB ONE (08:23)
[2020-04-25] MEDS ORDERED: MAALOX 30 ML SUSP *UDC ONE (08:23)
[2020-04-25] MEDS ORDERED: PALIPERIDONE 6 MG ER TAB (INVEGA) As Ordered ONE (22:04)
[2020-04-25] MEDS ORDERED: QUEtiapine FUMARATE 200 MG TAB As Ordered ONE (22:05)
[2020-04-25] MEDS ORDERED: BENZTROPINE 1 MG TAB As Ordered ONE (22:28)
[2020-04-26] MEDS ORDERED: ATORVASTATIN 20 MG TAB ONE (08:55)
[2020-04-26] MEDS ORDERED: ASPIRIN 81 MG ENTERIC TAB ONE (08:55)
[2020-04-26] MEDS ORDERED: DIVALPROEX 500MG *ER* TAB ONE (08:55)
[2020-04-26] MEDS ORDERED: amLODIPine 10 MG TAB ONE (08:55)
[2020-04-26] MEDS ORDERED: QUEtiapine FUMARATE 200 MG TAB As Ordered ONE (22:05)
[2020-04-26] MEDS ORDERED: PALIPERIDONE 6 MG ER TAB (INVEGA) As Ordered ONE (22:05)
[2020-04-26] MEDS ORDERED: BENZTROPINE 1 MG TAB As Ordered ONE (22:08)
[2020-04-26] MEDS ORDERED: MAALOX 30 ML SUSP *UDC ONE (22:33)
[2020-04-27] MEDS ORDERED: ATORVASTATIN 20 MG TAB ONE (09:27)
[2020-04-27] MEDS ORDERED: lisinopriL 20 MG TAB ONE (09:27)
[2020-04-27] MEDS ORDERED: amLODIPine 10 MG TAB ONE (09:27)
[2020-04-27] MEDS ORDERED: ASPIRIN 81 MG ENTERIC TAB ONE (09:27)
[2020-04-27] MEDS ORDERED: QUEtiapine FUMARATE 200 MG TAB As Ordered ONE (22:13)
[2020-04-27] MEDS ORDERED: BENZTROPINE 2 MG TAB As Ordered ONE (22:13)
[2020-04-27] MEDS ORDERED: PALIPERIDONE 3 MG ER TAB (INVEGA) As Ordered ONE (22:13)
[2020-04-27] MEDS ORDERED: MAALOX 30 ML SUSP *UDC ONE (23:28)
[2020-04-28] MEDS ORDERED: BENZTROPINE 2 MG TAB As Ordered ONE ×2 (08:43→22:01)
[2020-04-28] MEDS ORDERED: ATORVASTATIN 20 MG TAB ONE (08:43)
[2020-04-28] MEDS ORDERED: ASPIRIN 81 MG ENTERIC TAB ONE (08:43)
[2020-04-28] MEDS ORDERED: MAALOX 30 ML SUSP *UDC ONE (10:02)
[2020-04-28] MEDS ORDERED: DIVALPROEX 500MG *ER* TAB ONE (10:02)
[2020-04-28] MEDS ORDERED: PANTOPRAZOLE 20 MG TAB ONE (11:00)
[2020-04-28] MEDS ORDERED: PALIPERIDONE 6 MG ER TAB (INVEGA) As Ordered ONE (22:02)
[2020-04-28] MEDS ORDERED: QUEtiapine FUMARATE 100 MG TAB As Ordered ONE (22:02)
[2020-04-28] MEDS ORDERED: PALIPERIDONE 3 MG ER TAB (INVEGA) As Ordered ONE (22:02)
[2020-04-29] MEDS ORDERED: BENZTROPINE 2 MG TAB As Ordered ONE (22:21)
[2020-04-29] MEDS ORDERED: PALIPERIDONE 3 MG ER TAB (INVEGA) As Ordered ONE (22:21)
[2020-04-29] MEDS ORDERED: QUEtiapine FUMARATE 200 MG TAB As Ordered ONE (22:21)
[2020-04-30] MEDS ORDERED: BENZTROPINE 2 MG TAB As Ordered ONE (22:26)
[2020-04-30] MEDS ORDERED: QUEtiapine FUMARATE 200 MG TAB As Ordered ONE (22:27)
[2020-04-30] MEDS ORDERED: PALIPERIDONE 3 MG ER TAB (INVEGA) As Ordered ONE (22:27)
[2020-04-30] MEDS ORDERED: PALIPERIDONE 6 MG ER TAB (INVEGA) As Ordered ONE (22:27)
[2020-05-01] MEDS ORDERED: BENZTROPINE 2 MG TAB As Ordered ONE (09:22)
== END 2020-05-01 10:12 | disposition home or self-care (01) | DRG 753 ==
LOC: M ED 11:52 → M ED INP 14:52 → M PSY 17:00
PROVIDERS: ADMIT Psychiatry & Neurology Addiction Medicine; ATTEND Psychiatry & Neurology Addiction Medicine
DX: F31.13 Bipolar disorder, current episode manic without psychotic features, severe (principal); Z91.19 Patient's noncompliance with other medical treatment and regimen; R45.851 Suicidal ideations; Z79.899 Other long term (current) drug therapy